=== PATIENT | male | born 1965 | race Caucasian/White ===

== ENCOUNTER 2016-06-16 16:12 | Emergency (ER) | payer OTHER ==
[~2016-06-16] VITALS: Ht 190.5 cm; Wt 108.9 kg
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
[2016-06-16] MEDS ORDERED: HUMIRA10 MG/0.2 IM (17:44)
[2016-06-16] MEDS ORDERED: LISINOPRIL10 M1 PO (17:44)
[2016-06-16] MEDS ORDERED: AZATHIOPRINE50 M1 PO (17:46)
[2016-06-16] MEDS ORDERED: BALSALAZIDE DI750 M1 PO (17:46)
[2016-06-16] MEDS ORDERED: FOLIC ACID1 M1 PO (17:47)
[2016-06-16] MEDS ORDERED: VITAMIN D1000 UNIT PO (17:47)
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
[2016-06-16] MEDS ORDERED: KEFLEX500 M1 PO (18:27)
[2016-06-16 18:29] VITALS: BP 136/86
== END 2016-06-16 18:41 ==
LOC: ERH 16:12
DX: S01.442A Puncture wound with foreign body of left cheek and temporomandibular area, initial encounter (principal); W34.19XA Accidental malfunction from other specified firearms, initial encounter; Y93.89 Activity, other specified; Y92.838 Other recreation area as the place of occurrence of the external cause
CPT/HCPCS: 70140